=== PATIENT | male | born 1970 | race African-American/Black ===

== ENCOUNTER 2024-12-13 15:25 | Emergency (ER) | payer BC ==
[~2024-12-13] VITALS: Ht 179.1 cm; Wt 86.4 kg
--- NOTE | 2024-12-13 15:43 | Physician Documentation ---
History of Present Illness ~ Chief Complaint: Back Pain Stated Complaint: LOWER BACK PAIN Time Seen by MD: 15:42 HPI This is a 54-year-old male who presents for two days of back pain. No trauma. History of this, in his had occasional recurrences. No known injury unsure what has aggravated the pain. No chills or fever, nausea vomiting, chest pain or shortness of breath. Denies IV drug use. Known degenerative disc disease per previous imaging, although he has not had any imaging for several years. Took a Valium last night and aleve this morning. Medication Reconciliation Allergies: Coded Allergies: No Known Allergies (Unverified , 12/13/24) Scheduled Naproxen (Naproxen), 1 TAB PO Q12H Tizanidine Hcl (Zanaflex), 1 CAP PO Q12H Scheduled PRN Hydrocodone Bit/Acetaminophen 5/325 MG ([place] 5/325 MG), 1 TAB PO Q12H PRN PRN for pain Review of Systems ROS As stated above in the HPI, otherwise all systems are reviewed and negative. Physical Exam Physical Exam Vital Signs: Temperature: 98.0, Source: Temporal, Heart Rate: 66, Respiratory Rate: 16, BP: 150/77, Pulse Oximetry: 99, Weight: 86.360 Oxygen Flow Rate: 0 Physical Exam General: Alert, no apparent distress. Neck: Full range of motion. Back: No midline tenderness/crepitus. Palpable spasm, unable to completely straighten due to same. Respiratory: Lungs clear, no respiratory distress. Chest: No accessory muscle use. Cardiovascular: Regular rate and rhythm, no murmurs. Gastrointestinal: Soft, nontender, nondistended. Bowels sounds present. Extremities: Normal range of motion, no deformity. Neurologic: Oriented x4. Psychiatric: Normal mood and affect. Skin: Normal color, warm and dry. No edema, no ecchymosis. Progress Results/Orders Results/Orders Orders - BONG RUIZ NP Tizanidine Tablet (Zanaflex Tablet) (12/13/24 15:50) Completed Orders - BONG RUIZ NP Ketorolac Trometh 30mg/Ml Vial (Toradol (12/13/24 15:50) Medications Received in ER Medications (Trade) Dose Ordered Sig/Jose Route PRN Reason Start Time Stop Time Status Last Admin Dose Admin (Toradol inj. 30mg/ml) 30 mg ONCE ONCE IM 12/13/24 15:50 12/13/24 15:51 DC 12/13/24 15:53 30 MG Vital Signs 12/13/24 12/13/24 15:27 15:53 Temp 98.0 Pulse 66 Resp 16 16 B/P (MAP) 150/77 Pulse Ox 99 O2 Flow Rate 0 Medical Decision Making Differential Diagnosis This is a well-appearing 54-year-old male who presented due to an aggravation in his chronic back pain. No recent injury or trauma. No imaging was warranted. The patient was given Toradol 30 mg IM and tizanidine 4 mg p.o. in the emergency department. He will be sent home with muscle relaxants, naproxen, a few hydrocodone for pain. He is instructed to follow up with his primary care provider and requested a referral to physical therapy. He may also eventually benefit from an MRI as well as a referral to spinal specialist. Departure Time of Disposition: 15:50 Disposition: HOME / SELF CARE / HOMELESS Impression: Primary Impression: Low back pain Condition: Stable Discharge Instructions: Chronic Back Pain, Back Exercises Additional Instructions: Please see your primary care provider soon and request a referral to physical therapy and a spinal specialist if no better with PT. You may take the naproxen twice daily as needed for pain. Take with food. This replaces the Alleve. No further NSAIDs such as ibuprofen or Motrin. Use the tizanidine muscle relaxant as needed. Use the hydrocodone sparingly and occasionally for severe pain only. No driving x6 hours, no use of Valium within 6 hours of dose. Return if worse, especially with danger signs such as numbness in the groin where you would sit on a saddle, numbness/weakness in legs, or other concerns for emergent issue prompting need for back MRI. Referrals: NO PRIMARY CARE PROVIDER (PCP) Prescriptions Diazepam (Valium) 5 Mg Tablet 1 TAB PO HSPRN PRN for muscle spasm for 5 Days, #5 TAB 0 Refills Prov: BONG RUIZ NP 12/13/24 Naproxen (Naproxen) 500 Mg Tablet 1 TAB PO Q12H, #20 TAB Prov: BONG RUIZ [employer] 12/13/24 Hydrocodone Bit/Acetaminophen 5/325 MG ([place] 5/325 MG) 5 Mg/325 Mg Tablet 1 TAB PO Q12H PRN PRN for pain for 3 Days, #6 TAB Prov: BONG RUIZ NP 12/13/24 Tizanidine Hcl (Zanaflex) 4 Mg Capsule 1 CAP PO Q12H for muscle spasm for 15 Days, #30 CAP 0 Refills Prov: BONG RUIZ NP 12/13/24 Education Educated: Patient Educated regarding: diagnosis, treatment, prognosis, need for follow up Signature Scribe Signature: x Attestation: The note accurately reflects work and decisions made by me.Bong Ruiz - TOMI 12/13/24 15:49 BONG RUIZ NP Dec 13, 2024 15:42
[2024-12-13] MEDS ORDERED: TIZA4CAP PO (15:52)
[2024-12-13] MEDS ORDERED: NAPR-56 PO (15:52)
[2024-12-13] MEDS ORDERED: HYDR-3965 PO (15:52)
[2024-12-13] MEDS: ketorolac trometh 30MG/ML vial 30 MG/ML VIAL IM ONE (15:53)
[2024-12-13] MEDS ORDERED: DIAZ5TAB PO (15:56)
[2024-12-13 16:48] VITALS: BP 119/70; PULSE 57; RESP 16; TEMP 98.2; O2SAT 98
== END 2024-12-13 16:49 | disposition home or self-care (01) ==
LOC: ER 15:26
DX: M54.50 Low back pain, unspecified (principal); Z79.899 Other long term (current) drug therapy
CPT/HCPCS: 96372; 99283; J1885